=== PATIENT | female | born 2000 | race Caucasian/White ===

== ENCOUNTER 2019-03-20 06:45 | Day surgery (SDC) | payer OTHER ==
[2019-03-20 07:25] VITALS: BMI 27.1
[2019-03-20] MEDS ORDERED: hydrALAZINE 20 MG/ML VIAL SLOW IVP PRN (07:28)
--- NOTE | 2019-03-20 07:34 | PDOC.LDHP ---
Labor and Delivery H&P Chief complaint: contractions HPI: 19 y/o at 36w2d, patient of Dr. Stacy, presents with ctx since 0300 that woke her up. Denies VB, LOF or decreased FM. Had sex last night. Was checked in clinic yesterday an 2cm. ROS neg for HEENT, cv, pulm, gi, gu, neuro, psych, skin, musculoskeletal or constitutional symptoms other than mentioned above. OB History Details: 1 prior term Current complications: none Past Medical History: None Current medications: pre- vitamins Previous surgical history: none Allergies/Adverse Reactions: Allergies Allergy/AdvReac Type Severity Reaction Status Date / Time Penicillins Allergy Verified 03/20/19 07:24 Social history: tobacco use - Physical Exam Vital signs reviewed and normal: yes General: NAD, resting Lungs: nonlabored breathing Abdomen: gravid Extremeties: no edema FHT: category 1 (140s, mod variability, + accels, no decels) [place] contractions every: 3 mins - Vaginal Exam cm dilated: 3 (2.5 cm) Effacement: 75% Station: -2 - Assessment 19 y/o at 36w2d with ctx. status reassuring with reactive NST. - Plan -: Cervical exam essentially unchanged since clinic yesterday but will recheck in 2 hours since patient is dylan regularly.
[2019-03-20] MEDS ORDERED: hydrOXYzine Pamoate 25 mg Capsule PO SCH (10:00)
--- NOTE | 2019-03-20 11:16 | PRG ---
DATE OF SERVICE: 03/20/2019 TIME OF SERVICE: 10 o'clock. PRESENTING COMPLAINT: Contractions. HISTORY OF PRESENT ILLNESS: Ms. Mac is a 19-year-old, G2, P1, at 36 weeks' gestation. Antepartum records not available on the unit. She is a patient of Dr. Stacy, presents with complaining of contractions. She states she was 2 to 3 in the office, 75 and -3. She had an intercourse last night and had contractions since. She reports active fetus. Denies rupture of membranes. [employer] HISTORY: x1. Antepartum record not available. PAST MEDICAL HISTORY: Denies. PAST SURGICAL HISTORY: Denies. ALLERGIES: DENIES. MEDICATIONS: vitamins. SOCIAL HISTORY: Positive tobacco use. FAMILY HISTORY: Noncontributory. REVIEW OF SYSTEMS: Noncontributory. PHYSICAL EXAMINATION: GENERAL: White female, in no acute distress. VITAL SIGNS: Blood pressure 126/80, pulse 84, respirations 16, temperature 99. HEENT: Within normal limits. LUNGS: Clear to auscultation bilaterally. HEART: Regular rhythm. ABDOMEN: Soft, nontender, with indelible contractions every 3 to 5 minutes. Vulva without lesions. Vagina, without discharge. Cervical exam by RN was 2 to 3, 75, -3, posterior and cephalic at about 0700 hours and approximately 0945 hours. The patient had category 1 heart rate tracing without decelerations, positive accelerations, and contractions about 3 to 5 minutes. IMPRESSION: Late in labor. No evidence of active labor at 36 weeks' gestation. PLAN: Reassurance. Vistaril 50. Discharge home with ER precautions. Keep scheduled followup with Dr. Stacy. Job ID: [id number]
== END 2019-03-20 10:40 | disposition home or self-care (01) ==
LOC: L&D/OP 06:45
PROVIDERS: ATTEND Family Medicine
DX: O47.03 False labor before 37 completed weeks of gestation, third trimester (principal); O99.333 Smoking (tobacco) complicating pregnancy, third trimester; F17.200 Nicotine dependence, unspecified, uncomplicated; Z3A.36 36 weeks gestation of pregnancy; Z88.0 Allergy status to penicillin; Z91.048 Other nonmedicinal substance allergy status; Z91.040 Latex allergy status
CPT/HCPCS: 99282; Q0177

== ENCOUNTER 2019-03-20 14:43 | Inpatient (IN) | payer OTHER ==
[2019-03-20] MEDS ORDERED: Butorphanol Tartrate 1 MG/ML VIAL ONE (16:09)
[2019-03-20 16:12] VITALS: BMI 25.4
[2019-03-20] MEDS ORDERED: NS / Oxytocin 40 units/1000ml 1,000 ML IV PRN ×2 (16:19→16:33)
[2019-03-20] MEDS ORDERED: Promethazine HCl 25 MG/ML VIAL IM PRN ×3 (16:19→22:27)
[2019-03-20] MEDS ORDERED: Lidocaine 1% (PF) 30 ML VIAL SC PRN ×2 (16:19→16:33)
[2019-03-20] MEDS ORDERED: Ondansetron PF 4 MG/2 ML Vial IVP PRN ×3 (16:19→22:27)
[2019-03-20] MEDS ORDERED: HYDROcodone/Acetaminophen 5/325 mg Tablet PO PRN (16:19)
[2019-03-20] MEDS ORDERED: Diphenoxylate HCl/Atropine Tablet PO PRN (16:19)
[2019-03-20] MEDS ORDERED: hydrALAZINE 20 MG/ML VIAL SLOW IVP PRN ×2 (16:19→22:27)
[2019-03-20] MEDS ORDERED: Methylergonovine 0.2 MG/ML VIAL IM PRN (16:19)
[2019-03-20] MEDS ORDERED: Misoprostol 200 MCG TAB PR PRN (16:19)
[2019-03-20] MEDS ORDERED: Carboprost 250 MCG/ML AMP IM PRN (16:19)
[2019-03-20] MEDS ORDERED: Butorphanol Tartrate 1 MG/ML VIAL SLOW IVP PRN (16:19)
[2019-03-20] MEDS ORDERED: Ibuprofen 800 MG TAB PO PRN (16:19)
[2019-03-20 16:29] LABS: Hemoglobin 10.9 g/dL (12.0-16.0); Mean Corpuscular HGB CONC 34.6 g/dL (32.0-36.0); Mean Corpuscular Hemoglobin 29.1 pg (25.0-35.0); Mean Corpuscular Volume 84.1 fL (78.0-98.0); Mean Platelet Volume 9.2 fL (7.4-10.4); Platelet Count 171 thou/uL (130-400); RBC Distribution Width 13.8 % (11.5-14.5); Red Blood Cell (RBC) Count 3.74 mill/uL (4.00-5.20); White Blood Cell (WBC) Count 17.1 thou/uL (4.8-10.8)
[2019-03-20] MEDS ORDERED: NS w/ Oxytocin 10 units 500 ML IV SCH ×2 (16:30)
[2019-03-20] MEDS ORDERED: Lactated Ringer's 1,000 ML IV SCH ×3 (16:30→16:45)
[2019-03-20] MEDS ORDERED: Fentanyl 4 mcg/Bup 0.1% Cadd 100 ML ONE (16:35)
[2019-03-20] MEDS ORDERED: Vancomycin HCl 1 GM in Premix Bag 1 BAG IVPB SCH ×2 (17:00→22:00)
[2019-03-20 17:02] LABS: HBSAg Index 0.32 S/CO (0-0.99); Hep B Surf Ag Non-Reactive S/CO (NonReactive); Syphilis Antibody Nonreactive (Nonreactive); Syphilis Antibody Index 0.05 S/CO (<1.00 Non-Reactive)
[2019-03-20] MEDS ORDERED: Lactated Ringer's 500 ML IV PRN (17:14)
[2019-03-20] MEDS ORDERED: Naloxone HCl 0.4 mg/ml Vial IVP PRN ×2 (17:14)
[2019-03-20] MEDS ORDERED: diphenhydrAMINE 50 MG/ML VIAL IVP PRN (17:14)
[2019-03-20] MEDS ORDERED: Acetaminophen 325 MG TAB PO PRN (17:14)
[2019-03-20] MEDS ORDERED: ePHEDrine/0.9% NaCl/PF SYRINGE 50 mg/10 ml SLOW IVP PRN (17:14)
[2019-03-20] MEDS ORDERED: Fentanyl 4 mcg/Bupivacaine 0.1% Cassette 100 ML EPIDURAL SCH (17:15)
[2019-03-20] MEDS ORDERED: Communication Order-Pharmacy FS SCH (17:15)
[2019-03-20] MEDS ORDERED: Vancomycin HCl 1 GM in Sodium Chloride 0.9% 250 ML 300 ML IVPB SCH (22:00)
[2019-03-20] MEDS ORDERED: Milk Of Magnesia 30 ML UDCUP PO PRN (22:27)
[2019-03-20] MEDS ORDERED: NS / Oxytocin 40 units/1000ml 1,000 ML IV SCH (22:27)
[2019-03-20] MEDS ORDERED: diphenhydrAMINE 25 MG CAP PO PRN (22:27)
[2019-03-20] MEDS ORDERED: Bisacodyl 10 MG SUPP PR PRN (22:27)
[2019-03-20] MEDS: Ibuprofen 800 MG TAB PO SCH (22:47)
[2019-03-21 06:13] LABS: Hemoglobin 9.9 g/dL (12.0-16.0); Mean Corpuscular Hemoglobin 29.3 pg (25.0-35.0); Mean Corpuscular Volume 85.9 fL (78.0-98.0); Mean Platelet Volume 8.8 fL (7.4-10.4); Platelet Count 157 thou/uL (130-400); RBC Distribution Width 13.7 % (11.5-14.5); Red Blood Cell (RBC) Count 3.39 mill/uL (4.00-5.20); White Blood Cell (WBC) Count 14.2 thou/uL (4.8-10.8)
[2019-03-21] MEDS ORDERED: Ibuprofen 800 MG TAB PO SCH (06:30)
[2019-03-21] MEDS: Ferrous Sulfate 325 MG TAB PO SCH ×2 (08:05→19:21)
[2019-03-21] MEDS ORDERED: Adacel (T-DAP) 0.5 ML SYRINGE IM ONE (09:00)
[2019-03-21] MEDS: Ibuprofen 800 MG TAB PO SCH ×2 (15:36→21:45)
[2019-03-21] MEDS: Prenatal Vitamin 1 TAB PO SCH (15:37)
[2019-03-21] MEDS: Docusate Calcium (SURFAK) 240 MG CAP PO SCH ×3 (15:37→20:44)
[2019-03-21] MEDS ORDERED: FLU VACC QS2019-20(6MOS UP)/PF 60 MCG/0.5 ML SYRINGE IM ONE (16:30)
[2019-03-21] MEDS: HYDROcodone/Acetaminophen 5/325 mg Tablet PO PRN (20:44)
[2019-03-22] MEDS: HYDROcodone/Acetaminophen 5/325 mg Tablet PO PRN ×5 (00:52→19:03)
[2019-03-22] MEDS: Ibuprofen 800 MG TAB PO SCH ×3 (05:01→21:27)
[2019-03-22] MEDS: Prenatal Vitamin 1 TAB PO SCH (08:57)
[2019-03-22] MEDS: Ferrous Sulfate 325 MG TAB PO SCH ×2 (08:57→17:41)
[2019-03-22] MEDS: Docusate Calcium (SURFAK) 240 MG CAP PO SCH ×2 (08:59→21:27)
[2019-03-23] MEDS: HYDROcodone/Acetaminophen 5/325 mg Tablet PO PRN ×4 (00:23→12:41)
[2019-03-23] MEDS: Ibuprofen 800 MG TAB PO SCH ×2 (04:43→13:55)
[2019-03-23 07:39] VITALS: BP 116/76; TEMP 98.9
[2019-03-23] MEDS: Ferrous Sulfate 325 MG TAB PO SCH (08:40)
[2019-03-23] MEDS: Docusate Calcium (SURFAK) 240 MG CAP PO SCH (08:40)
[2019-03-23] MEDS: Prenatal Vitamin 1 TAB PO SCH (08:40)
== END 2019-03-23 15:50 | disposition home or self-care (01) | DRG 807 ==
LOC: L&D/OP 14:43 → L&D 17:12 → 3SW 03-21 20:53
PROVIDERS: ADMIT Family Medicine; ATTEND Family Medicine
PROC: 10907ZC Drainage of Amniotic Fluid, Therapeutic from Products of Conception, Via Natural or Artificial Opening (ICD-10-PCS; principal; 2019-03-20)
PROC: 10E0XZZ Delivery of Products of Conception, External Approach (ICD-10-PCS; 2019-03-20)
DX: O60.14X0 Preterm labor third trimester with preterm delivery third trimester, not applicable or unspecified (principal); Z37.0 Single live birth; O77.0 Labor and delivery complicated by meconium in amniotic fluid; Z3A.36 36 weeks gestation of pregnancy
CPT/HCPCS: 36415; 51702; 85027; 86780; 86850; 86900; 86901; 87340; 88307; 99285; J0595; J2590; J3370; Q0177

== ENCOUNTER 2019-04-07 14:56 | Emergency (ER) | payer OTHER | END 2019-04-07 16:10 | disposition home or self-care (01) | LOC: ERS 14:56 | DX: O99.73 Diseases of the skin and subcutaneous tissue complicating the puerperium (principal); L50.0 Allergic urticaria; F17.210 Nicotine dependence, cigarettes, uncomplicated | CPT/HCPCS: 99283 ==

== ENCOUNTER 2020-07-23 15:33 | Emergency (ER) | payer OTHER, SELFPAY ==
[2020-07-23 16:24] LABS: #Basophils 0.1 thou/uL (0.0-0.2); #Eosinphils 0.2 thou/uL (0.0-0.7); #Lymphocytes 3.3 thou/uL (1.20-3.40); #Monocytes 0.5 thou/uL (0.11-0.59); #Neutrophils 5.4 thou/uL (1.40-6.50); %Basophils 0.9 % (0.0-1.0); %Eosinophils 2.2 % (0.0-10.0); %Lymphocytes 34.4 % (21.0-51.0); %Monocytes 5.6 % (0.0-10.0); %Neutrophils 56.9 % (42.0-75.0); Hemoglobin 14.9 g/dL (12.0-16.0); Mean Corpuscular HGB CONC 34.1 g/dL (32.0-36.0); Mean Corpuscular Hemoglobin 32.8 pg (27.0-31.0); Mean Platelet Volume 8.8 fL (7.4-10.4); Platelet Count 185 thou/uL (130-400); RBC Distribution Width 11.4 % (11.5-14.5); Red Blood Cell (RBC) Count 4.53 mill/uL (4.20-5.40); White Blood Cell (WBC) Count 9.6 thou/uL (4.8-10.8)
[2020-07-23 16:46] LABS: ALT (SGPT) 7 U/L (8-55); AST (SGOT) 11 U/L (5-34); Albumin 4.6 g/dL (3.5-5.0); Alkaline Phosphatase 68 U/L (40-110); Anion Gap 15 mmol/L (10-20); BUN (Urea Nitrogen) 5 mg/dL (7.0-18.7); Bilirubin, Total 0.5 mg/dL (0.2-1.2); Calc. Creatinine Clearance 0 mL/min (70-130); Calcium 9.6 mg/dL (7.8-10.44); Carbon Dioxide 21 mmol/L (22-29); Chloride 103 mmol/L (98-107); Globulin 3.1 g/dL (2.4-3.5); Glucose 80 mg/dL (70-105); Potassium 3.7 mmol/L (3.5-5.1); Protein, Total 7.7 g/dL (6.0-8.3); Sodium 135 mmol/L (136-145)
[2020-07-23 17:31] LABS: Bacteria/HPF None Seen HPF (None Seen); Bilirubin Negative (Negative); Blood, Urine 1+ (Negative); Clarity Clear (Clear); Glucose, Urine (Dipstick) Normal (Negative); Ketone, Urine 80 mg/dL (Negative); Leukocyte Negative Leu/uL (Negative); Nitrite Negative (Negative); Protein, Urine (Dipstick) Negative (Neg-Trace); RBC/HPF 0-3 HPF (0-3); Specific Gravity, Urine 1.013 (1.002-1.036); Squamous Epithelial 0-3 HPF (0-3); Urobilinogen Normal mg/dL (Less than 2); WBC/HPF 0-3 HPF (0-3); pH, Urine 6.5 (5.0-9.0)
== END 2020-07-23 18:01 | disposition home or self-care (01) ==
LOC: ERS 15:33
DX: O20.9 Hemorrhage in early pregnancy, unspecified (principal); O99.331 Smoking (tobacco) complicating pregnancy, first trimester; F17.210 Nicotine dependence, cigarettes, uncomplicated; Z3A.01 Less than 8 weeks gestation of pregnancy
CPT/HCPCS: 36415; 80053; 81001; 84702; 85025; 86900; 86901

== ENCOUNTER 2020-07-25 11:59 | Emergency (ER) | payer SELFPAY | END 2020-07-25 13:54 | disposition home or self-care (01) | LOC: ERS 11:59 | DX: O20.0 Threatened abortion (principal); Z3A.01 Less than 8 weeks gestation of pregnancy; O99.331 Smoking (tobacco) complicating pregnancy, first trimester; F17.210 Nicotine dependence, cigarettes, uncomplicated; Z79.899 Other long term (current) drug therapy | CPT/HCPCS: 36415; 76856; 84702; 86900; 86901; 93976 ==